=== PATIENT | male | born 1965 | race Caucasian/White ===

== ENCOUNTER 2022-04-11 14:46 | Emergency (ER) | payer BC, OTHER ==
[~2022-04-11] VITALS: Ht 180.3 cm; Wt 86.4 kg
[2022-04-11 16:20] LABS: HEMATOCRIT 53.3 % (42.0-52.0); HEMOGLOBIN 17.5 g/dl (13.5-17.5); MEAN CORPUSCULAR HEMOGLOBIN 30.3 pg (27.0-33.0); MEAN CORPUSCULAR HGB CONC 32.8 g/dl (32.0-36.5); MEAN CORPUSCULAR VOLUME 92.2 fl (80.0-96.0); PLATELET COUNT, AUTOMATED 426 10^3/uL (150-450); RED BLOOD COUNT 5.78 10^6/uL (4.30-6.10); WHITE BLOOD COUNT 11.7 10^3/uL (4.0-10.0)
[2022-04-11 16:45] LABS: RSV AMPLIFICATION NEGATIVE (NEGATIVE)
[2022-04-11 16:57] LABS: AMPHETAMINES LEVEL URINE NEGATIVE (NEGATIVE); BARBITURATES URINE NEGATIVE (NEGATIVE); BENZODIAZEPINES URINE NEGATIVE (NEGATIVE); CANNABINOIDS URINE POSITIVE (NEGATIVE); COCAINE METABOLITE URINE NEGATIVE (NEGATIVE); METHADONE URINE NEGATIVE (NEGATIVE); OPIATES URINE NEGATIVE (NEGATIVE); PHENCYCLIDINE URINE NEGATIVE (NEGATIVE)
[2022-04-11 17:06] LABS: ACETAMINOPHEN LEVEL < 2.0 UG/ML (10.0-30.0); ALBUMIN 3.7 GM/DL (3.2-5.2); ALT/SGPT 24 U/L (12-78); BILIRUBIN,DIRECT < 0.1 MG/DL (0.0-0.2); BILIRUBIN,TOTAL 0.3 MG/DL (0.2-1.0); BLOOD UREA NITROGEN 17 MG/DL (7-18); CALCIUM LEVEL 10.1 MG/DL (8.5-10.1); CARBON DIOXIDE LEVEL 30 MEQ/L (21-32); CHLORIDE LEVEL 108 MEQ/L (98-107); CREATININE FOR GFR 0.87 MG/DL (0.70-1.30); ETHYL ALCOHOL (ETHANOL) 0.005 % (0.000-0.010); GLOMERULAR FILTRATION RATE > 60.0 (>56); GLUCOSE, FASTING 101 MG/DL (70-100); POTASSIUM SERUM 5.3 MEQ/L (3.5-5.1); SALICYLATE LEVEL 3.6 MG/DL (5.0-30.0); SODIUM LEVEL 139 MEQ/L (136-145); TOTAL PROTEIN 7.6 GM/DL (6.4-8.2)
[2022-04-11] MEDS ORDERED: THIA100T7 PO (18:50)
[2022-04-11] MEDS ORDERED: DESV50TA PO (18:50)
[2022-04-11] MEDS ORDERED: HOME MED LIST COMPLETE! XX SCH (18:50)
[2022-04-11] MEDS ORDERED: GLAT40IN SC (18:50)
[2022-04-11] MEDS ORDERED: VITA200012 PO (18:50)
[2022-04-11] MEDS ORDERED: DESVENLAFAXINE ER 50 MG TABLET (PRISTIQ) PO ONE (23:10)
[2022-04-12 06:34] VITALS: BP 107/61
[2022-04-12] MEDS ORDERED: DESVENLAFAXINE ER 50 MG TABLET (PRISTIQ) PO SCH (09:00)
== END 2022-04-12 06:36 ==
LOC: M ED 14:46
DX: R45.851 Suicidal ideations (principal); F32.A Depression, unspecified; G35 Multiple sclerosis; F17.200 Nicotine dependence, unspecified, uncomplicated; Z79.899 Other long term (current) drug therapy

== ENCOUNTER 2023-04-18 01:04 | Emergency (ER) | payer OTHER ==
[~2023-04-18] VITALS: Ht 180.3 cm; Wt 88.5 kg
[~2023-04-18 01:04] MED LIST: DESV50TA PO; GLAT40IN SC; THIA100T7 PO; VITA200012 PO
[2023-04-18] MEDS ORDERED: LIDOCAINE 2% MDV 20ML VIAL As Ordered ONE (03:47)
[2023-04-18] MEDS ORDERED: LIDOCAINE 2% MDV 20ML VIAL SC ONE (03:50)
[2023-04-18 04:00] VITALS: BP 124/82
[2023-04-18] MEDS ORDERED: NEOSPORIN OINT 0.9 GM PKT TOP ONE (04:15)
[2023-04-18] MEDS ORDERED: BOOSTRIX VACCINE (TETANUS/DIPHTH/ACEL. PERTUSSIS) 0.5ML SYR IM.IMMUN ONE (04:20)
[2023-04-18 04:32] VITALS: O2SAT 99
[2023-04-18 04:33] VITALS: TEMP 97.8
== END 2023-04-18 04:35 | disposition home or self-care (01) ==
LOC: M ED 01:04
DX: S61.411A Laceration without foreign body of right hand, initial encounter (principal); S51.811A Laceration without foreign body of right forearm, initial encounter; W25.XXXA Contact with sharp glass, initial encounter; Y92.009 Unspecified place in unspecified non-institutional (private) residence as the place of occurrence of the external cause; Z79.899 Other long term (current) drug therapy

== ENCOUNTER 2024-01-03 18:04 | Emergency (ER) | payer OTHER ==
[~2024-01-03] VITALS: Ht 180.3 cm; Wt 86.4 kg
[2024-01-03] MEDS ORDERED: CIPR7.5D2 AD (20:37)
[2024-01-03] MEDS: CIPRODEX OTIC SUSP 7.5ML AD STA (20:38)
[2024-01-03 20:45] VITALS: BP 129/93; TEMP 97; O2SAT 97
== END 2024-01-03 21:00 | disposition home or self-care (01) ==
LOC: M ED 18:04
DX: H66.91 Otitis media, unspecified, right ear (principal); Z79.899 Other long term (current) drug therapy; Z79.2 Long term (current) use of antibiotics

== ENCOUNTER 2024-03-14 11:30 | Emergency (ER) | payer OTHER ==
[~2024-03-14] VITALS: Ht 154.9 cm; Wt 91.1 kg
[~2024-03-14 11:30] MED LIST changes: +CIPR7.5D2 AD
[2024-03-14 11:31] VITALS: BP 119/80; TEMP 97.3; O2SAT 97
== END 2024-03-14 13:37 | disposition left against medical advice (07) ==
LOC: M ED 11:30
DX: Z53.21 Procedure and treatment not carried out due to patient leaving prior to being seen by health care provider (principal)

== ENCOUNTER 2024-10-24 18:13 | Inpatient (IN) | payer OTHER ==
[~2024-10-24] VITALS: Ht 180.3 cm; Wt 195.0 kg
[2024-10-24 18:57] LABS: HEMATOCRIT 49.5 % (42.0-52.0); HEMOGLOBIN 16.9 g/dl (13.5-17.5); MEAN CORPUSCULAR HGB CONC 34.1 g/dl (32.0-36.5); MEAN CORPUSCULAR VOLUME 90.8 fl (80.0-96.0); PLATELET COUNT, AUTOMATED 411 10^3/uL (150-450); RED BLOOD COUNT 5.45 10^6/uL (4.30-6.10)
[2024-10-24 19:17] LABS: AMPHETAMINES LEVEL URINE NEGATIVE (NEGATIVE); BARBITURATES URINE NEGATIVE (NEGATIVE); BENZODIAZEPINES URINE NEGATIVE (NEGATIVE); COCAINE METABOLITE URINE NEGATIVE (NEGATIVE); METHADONE URINE NEGATIVE (NEGATIVE); OPIATES URINE NEGATIVE (NEGATIVE); PHENCYCLIDINE URINE NEGATIVE (NEGATIVE)
[2024-10-24 19:20] LABS: ETHYL ALCOHOL (ETHANOL) < 0.003 % (0.000-0.010)
[2024-10-24 19:21] LABS: ALBUMIN 4.2 G/DL (3.2-5.2); ALKALINE PHOSPHATASE 65 U/L (40-129); ALT/SGPT 22 U/L (7.0-40); AST/SGOT 14 U/L (<34); BILIRUBIN,DIRECT 0.3 MG/DL (<0.4); BILIRUBIN,TOTAL 0.8 MG/DL (0.3-1.2); BLOOD UREA NITROGEN 8 MG/DL (9-23); CALCIUM LEVEL 9.6 MG/DL (8.5-10.1); CARBON DIOXIDE LEVEL 28 MMOL/L (20-31); CHLORIDE LEVEL 105 MMOL/L (98-107); CREATININE FOR GFR 0.76 MG/DL (0.70-1.30); GLOMERULAR FILTRATION RATE > 90.0 (>56); GLUCOSE, FASTING 92 MG/DL (60-100); POTASSIUM SERUM 4.5 MMOL/L (3.5-5.1); SALICYLATE LEVEL < 3.0 MG/DL (<30); SODIUM LEVEL 140 MMOL/L (136-145); TOTAL PROTEIN 7.1 G/DL (5.7-8.2)
[2024-10-24 19:22] LABS: CANNABINOIDS URINE POSITIVE (NEGATIVE)
[2024-10-24 19:24] LABS: THYROID STIMULATING HORMONE 2.287 uIU/ML (0.55-4.78)
[2024-10-24 21:51] LABS: APPEARANCE, URINE HAZY (CLEAR); BACTERIA, URINE AUTO NEGATIVE (NEGATIVE); BILIRUBIN, URINE AUTO NEGATIVE (NEGATIVE); BLOOD, URINE BLOOD NEGATIVE (NEGATIVE); COLOR, URINE YELLOW (YELLOW); GLUCOSE, URINE (UA) AUTO NEGATIVE (NEGATIVE); KETONE, URINE AUTO NEGATIVE (NEGATIVE); LEUKOCYTE ESTERASE, URINE AUTO TRACE (NEGATIVE); MUCUS, URINE SMALL (NEGATIVE); NITRITE, URINE AUTO NEGATIVE (NEGATIVE); PROTEIN, URINE AUTO NEGATIVE (NEGATIVE); RBC, URINE AUTO 1 /HPF (0-3); SPECIFIC GRAVITY URINE AUTO 1.014 (1.002-1.035); SQUAMOUS EPITHELIAL CELL UR AU 0 /HPF (0-6); UROBILINOGEN, URINE AUTO 0.2 mg/dL (0.0-2.0); WBC, URINE AUTO 5 /HPF (0-3)
[2024-10-24] MEDS ORDERED: BRIN10TA4 PO (22:26)
[2024-10-24] MEDS ORDERED: HOME MED LIST COMPLETE! XX SCH (22:30)
[2024-10-25] MEDS ORDERED: NICOTINE 21MG/24HR 1 EA TRANSDERMAL TD ONE (17:20)
[2024-10-25] MEDS ORDERED: diphenhydrAMINE 25MG CAP PO PRN (17:45)
[2024-10-25] MEDS ORDERED: ACETAMINOPHEN 325 MG TAB PO PRN (17:45)
[2024-10-25] MEDS ORDERED: MAALOX 30 ML SUSP *UDC PO PRN (17:45)
[2024-10-25] MEDS ORDERED: MOM 30ML SUSPENSION UDC PO PRN (17:45)
[2024-10-25] MEDS ORDERED: IBUPROFEN 400MG TAB PO PRN (17:45)
[2024-10-25] MEDS: NICOTINE 21MG/24HR 1 EA TRANSDERMAL TD SCH (17:51)
[2024-10-26 06:26] VITALS: BP 135/84; TEMP 97.9; O2SAT 98
[2024-10-26] MEDS: ESCITALOPRAM OXALATE 10 MG TAB (LEXAPRO) PO SCH (14:55)
[2024-10-26 15:52] VITALS: BP 141/85; TEMP 97.4; O2SAT 95
[2024-10-26] MEDS: traZODone 50 MG TAB PO PRN (20:27)
[2024-10-27 06:32] VITALS: BP 106/57; TEMP 98.2; O2SAT 98
[2024-10-27 14:44] VITALS: BP 149/84; TEMP 98; O2SAT 99
[2024-10-28 06:37] VITALS: BP 119/76; TEMP 98.3; O2SAT 98
[2024-10-28 15:49] VITALS: BP 126/91; TEMP 97.5; O2SAT 100
[2024-10-29 06:33] VITALS: BP 157/91; TEMP 97.1; O2SAT 98
[2024-10-29 18:48] VITALS: BP 144/79; TEMP 97.7
[2024-10-30 06:26] VITALS: BP 124/74; TEMP 97.8; O2SAT 98
[2024-10-30 14:28] VITALS: BP 139/85; TEMP 97.8; O2SAT 99
[2024-10-30] MEDS ORDERED: HYDR-4570 PO (23:44)
[2024-10-30] MEDS ORDERED: TRAZ-252 PO (23:44)
[2024-10-30] MEDS ORDERED: LEXA1TAB PO (23:44)
[2024-10-31 06:27] VITALS: BP 133/83; TEMP 97.1; O2SAT 98
== END 2024-10-31 11:18 | disposition home or self-care (01) | DRG 885 ==
LOC: M ED 18:13 → M ED INP 10-25 14:45 → M PSY 10-25 16:35
PROVIDERS: ADMIT Psychiatry & Neurology Psychiatry; ATTEND Psychiatry & Neurology Psychiatry
DX: F33.1 Major depressive disorder, recurrent, moderate (principal); R45.851 Suicidal ideations; F41.0 Panic disorder [episodic paroxysmal anxiety]; G35 Multiple sclerosis; Z56.0 Unemployment, unspecified; Z79.899 Other long term (current) drug therapy; F17.200 Nicotine dependence, unspecified, uncomplicated